=== PATIENT | male | born 1990 | race African-American/Black ===

== ENCOUNTER 2018-11-02 22:19 | Emergency (ER) | payer SELFPAY ==
[2018-11-02 22:35] VITALS: BP 125/75
--- NOTE | 2018-11-02 22:44 | ED Physician Documentation ---
Sore Throat/Dental Pain - HISTORIAN Historian: patient - HPI Stated Complaint: Right side dental pain Chief Complaint: Dental Pain Additional Information: Patient presents to ED with a 2 day history of worsening right lower dental pain. Patient states he pulled his own tooth a week ago and is now having pain. Onset: days ago (2) Context: Fractured Tooth Associated Symptoms: denies: fever, chills Worsened By: heat, cold - ROS CONST: no problems CVS/RESP: denies: chest pain, shortness of breath GI/: denies: nausea, vomiting MS/SKIN/LYMPH: denies: muscle aches NEURO/PSYCH: headache - PAST HX Past History: none Other History: none Allergies/Adverse Reactions: Allergies Allergy/AdvReac Type Severity Reaction Status Date / Time No Known Allergies Allergy Unverified 11/02/18 22:35 Home Medications: Ambulatory Orders Medication Instructions Recorded Hydrocodone/Acetaminophen [Zumbrota 1 each PO TID PRN #10 tablet 11/02/18 5-325 Tablet] Penicillin V Potassium [Pen V K] 500 mg PO TID 10 Days #30 tablet 11/02/18 - SOCIAL HX Smoking History: non-smoker Alcohol Use: none Drug Use: none - FAMILY HX Family History: No - VITAL SIGNS Vital Signs: Vital Signs Temp Pulse Resp BP Pulse Ox 97.9 F 78 16 125/75 98 11/02/18 22:30 11/02/18 22:30 11/02/18 22:30 11/02/18 22:30 11/02/18 22:30 - REVIEWED ASSESSMENTS Nursing Assessment Reviewed: Yes Vitals Reviewed: Yes Dental Pain Physical Exam - EXAM General Appearance: alert Head/Neck: no lymphadenopathy Eyes: PERRL Mouth/Throat: gums nml, other (right lower molar fractured) Ear/Nose: nml inspection Respiratory: no resp. distress, breath sounds nml, respiratory distress CVS: reg. rate & rhythm, heart sounds nml Abdomen: soft, normal bowel sounds, non-tender Extremities: non-tender Skin: warm/dry Neuro/Psych: No: weakness Discharge Clincal Impression: Fractured tooth Qualifiers: Encounter type: initial encounter Fracture type: closed Qualified Code(s): S02.5XXA - Fracture of tooth (traumatic), initial encounter for closed fracture Prescriptions: Hydrocodone/Acetaminophen [Zumbrota 5-325 Tablet] 1 each PO TID PRN #10 tablet PRN Reason: dental pain Penicillin V Potassium [Pen V K] 500 mg PO TID 10 Days #30 tablet Referrals: Primary Doctor,No [Primary Care Provider] - 2 Days Additional Instructions: 1. Take antibiotic until gone 2. Follow up with Dentist as soon as possible 3. Take Zumbrota every 8 hours as needed for pain. Do not take this medication while working 4. Salt water mouth rinses after eat meal and snacks. Do NOT smoke 5. Follow up with PCP within 1 week 6. Return to ER for new or worsening symptoms Condition: Stable Disposition: 01 HOME, SELF-CARE Decision to Admit: NO Date of Decison to Admit: 11/02/18 Decision Time: 22:58
[2018-11-02] MEDS: AMOXICILLIN/POT 875/125 1 EACH PO ONE (23:00)
[2018-11-02] MEDS: HYDROcodone /APAP 5/325 1 EACH TABLET PO ONE (23:00)
== END 2018-11-02 23:05 | disposition home or self-care (01) ==
LOC: ED 22:19
DX: S02.5XXA Fracture of tooth (traumatic), initial encounter for closed fracture (principal)
CPT/HCPCS: 99283; 99284; A9270